=== PATIENT | male | born 1940 | race Two or more races ===

== ENCOUNTER 2022-01-10 14:30 | Inpatient (IN) | payer MEDICARE, OTHER ==
[~2022-01-10] VITALS: Ht 182.9 cm; Wt 68.9 kg
--- NOTE | 2022-01-10 14:34 | NUR ---
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 TO ER BED 6, HOOKED TO MONITOR, CHANGED TO HOSP GOWN,W ARM BLANKET PROVIDED. PATIENT AAOx1. BREATHING EVEN AND UNLABORED. AWAITING MD TERRY
--- NOTE | 2022-01-10 15:00 | NUR ---
DR RUFFIN AT BEDSIDE
--- NOTE | 2022-01-10 15:14 | NUR ---
PATIENT TAKEN TO CT VIA CARL[facility] ENRIQUE
[2022-01-10] MEDS ORDERED: CYAN1TAB17 PO (16:09)
[2022-01-10] MEDS ORDERED: FINA5TAB11 PO (16:09)
[2022-01-10] MEDS ORDERED: TRAZ-182 PO (16:09)
[2022-01-10] MEDS ORDERED: TRAM50TA2 PO (16:09)
[2022-01-10] MEDS ORDERED: PROB500T9 PO (16:09)
[2022-01-10] MEDS ORDERED: PANT40TA49 PO (16:09)
[2022-01-10] MEDS ORDERED: MAGN400T52 PO (16:09)
[2022-01-10] MEDS ORDERED: CYAN-51 PO (16:09)
[2022-01-10] MEDS ORDERED: MELA3TAB41 PO (16:09)
[2022-01-10] MEDS ORDERED: TERA5CAP4 PO (16:09)
[2022-01-10] MEDS ORDERED: LEVO-104 PO (16:09)
[2022-01-10] MEDS ORDERED: BUPR100T13 PO (16:09)
[2022-01-10] MEDS ORDERED: LEVE500T20 PO (16:09)
[2022-01-10] MEDS ORDERED: TURM500C9 PO (16:09)
[2022-01-10] MEDS ORDERED: FOLI0.4T6 PO (16:09)
--- NOTE | 2022-01-10 16:20 | NUR ---
COVID SWAB DONE AND SENT TO LAB
[2022-01-10 16:53] LABS: BASOPHILS % (AUTO) 0.1 % (0.0-2.0); EOSINOPHILS % (AUTO) 0.2 % (0.0-6.0); HEMATOCRIT 36 % (39-51); LYMPHOCYTES # (AUTO) 0.7 K/uL (0.8-4.8); LYMPHOCYTES % (AUTO) 7.1 % (20.0-44.0); MEAN CORPUSCULAR HGB CONC 34 g/dl (31.0-36.0); MEAN CORPUSCULAR VOLUME 98 fL (80-96); MONOCYTES # (AUTO) 1.2 K/uL (0.1-1.30); NEUTROPHILS # (AUTO) 7.4 K/uL (1.8-8.9); NEUTROPHILS % (AUTO) 79.6 % (43.0-81.0); PLATELET COUNT (AUTO) 133 K/uL (150-450); RED BLOOD CELL COUNT(AUTO) 3.61 MIL/uL (4.5-6.0); WHITE BLOOD COUNT (AUTO) 9.3 K/uL (4.3-11.0)
[2022-01-10 17:06] LABS: CALCIUM, SERUM 9.1 mg/dL (8.5-10.1); CREATININE 1.2 mg/dL (0.6-1.3)
--- NOTE | 2022-01-10 18:05 | NUR ---
room assigned 327.1
--- NOTE | 2022-01-10 18:23 | NUR ---
REPORT GIVEN TO SAMUEL MORRIS OF MS UNIT
[2022-01-10] MEDS ORDERED: ACETAMINOPHEN 325 MG TABLET PO PRN (18:30)
[2022-01-10] MEDS ORDERED: ONDANSETRON HCL/PF 4 MG/2 ML VIAL IVP PRN (18:30)
[2022-01-10] MEDS ORDERED: Z GUARD REMEDY 4 OZ OINT TP PRN (18:30)
[2022-01-10] MEDS ORDERED: MAG HYDROX/AL HYDROX/SIMETH 30 ML UDC PO PRN (18:30)
[2022-01-10] MEDS ORDERED: TRAMADOL HCL 50 MG TABLET PO PRN (18:30)
[2022-01-10] MEDS ORDERED: HYDROMORPHONE 1 MG/1 ML DISP.SYRIN IV PRN (19:00)
--- NOTE | 2022-01-10 19:30 | NUR ---
MS STORAGE SPECIALIST NOTES RECEIVED REPORT FROM SAMUEL RN,PER REPORT,PATIENT JUST TRANSPORTED TO THE UNIT VIA GURNEY FROM ER,ALERT,ORIENTED X1-2,WITH PERIODS OF CONFUSION,S/P FROM WHEELCHAIR AT THE FACILITY, FALL YESTERDAY WHILE WALKING WELL..ON HIP X-RAY AND PELVIC CT SHOWED COMMINUTED,DISPLACED INTER THROCHANTERIC FRACTURE LEFT HIP.NO SKIN ISSUES,SALINE LOCK LEFT AC INTACT AND PATENT,SITTER AT BEDSIDE FOR SAFETY,WILL CONTINUE TO MONITOR STATUS.
[2022-01-10] MEDS: IV NS 0.9% 1,000 ML IV PRN (19:58)
--- NOTE | 2022-01-10 19:58 | NUR ---
MS RN NOTES STARTED ON IVF NS AT 90ML/HR RATE. ORDERED.
[2022-01-10 20:00] VITALS: BP 154/94
[2022-01-10] MEDS: TRAZODONE 50 MG TABLET PO SCH (21:20)
[2022-01-10] MEDS ORDERED: ZOLPIDEM TARTRATE 5 MG TABLET PO PRN (22:00)
[2022-01-10] MEDS ORDERED: Medication Not On Formulary EA (Melatonin 3 MG) PO SCH (22:00)
[2022-01-10] MEDS ORDERED: MAGNESIUM HYDROXIDE 30 ML UDC PO PRN (22:00)
--- NOTE | 2022-01-11 04:00 | NUR ---
MS RN NOTES GAY CATHETER LAO 16 INSERTED ASEPTICALLY,WITH CONCENTRATED URINE OUTPUT.SPECIMEN OBTAINED FOR U/A AND CULTURE,SENT TO LAB
--- NOTE | 2022-01-11 06:29 | NUR ---
MS RN NOTES FAIRLY RESTED AT NIGHT,PAIN TOLERABLE THRU OUT SHIFT,NPO POST MIDNIGHT,GOING FOR LEFT HIP ORIF BY DR GILMAN.SURGICAL POCKET ON CHART.GAY CATH IN PLACE DRAINS TEA COLORED URINE.IN NO ACUTE DISTRESS.SITTER AT BEDSIDE..
[2022-01-11 06:50] LABS: BASOPHILS % (AUTO) 0.1 % (0.0-2.0); EOSINOPHILS % (AUTO) 0.3 % (0.0-6.0); HEMATOCRIT 33 % (39-51); HEMOGLOBIN 11.2 g/dL (13.5-17.5); LYMPHOCYTES # (AUTO) 0.9 K/uL (0.8-4.8); LYMPHOCYTES % (AUTO) 9.8 % (20.0-44.0); MEAN CORPUSCULAR HGB CONC 34 g/dl (31.0-36.0); MEAN CORPUSCULAR VOLUME 98 fL (80-96); MONOCYTES # (AUTO) 1.1 K/uL (0.1-1.30); MONOCYTES % (AUTO) 12.2 % (2.0-12.0); NEUTROPHILS % (AUTO) 77.6 % (43.0-81.0); PLATELET COUNT (AUTO) 141 K/uL (150-450); RED BLOOD CELL COUNT(AUTO) 3.34 MIL/uL (4.5-6.0); WHITE BLOOD COUNT (AUTO) 9.1 K/uL (4.3-11.0)
--- NOTE | 2022-01-11 07:06 | NUR ---
MS RN OPENING NOTES RECEIVED PATIENT SLEEPING IN BED, ON ROOM AIR, NO S/S OF RESPIRATORY DISTRESS. RESPONSIVE TO VERBAL AND TACTILE STIMULI. A/Ox1-2, EPISODES OF CONFUSION. HAS FC, DRAINING WELL, YELLOW URINE PRESENT. IV ACCESS L AC RUNNING NS @90 ML/HR. INTACT AND PATENT. SKIN INTACT. SITTER AT BEDSIDE. SAFETY MEASURES IN PLACE: BED LOCKED AND IN LOWEST POSITION, SIDE RAILS UPx3, HOB ELEVATED, CALL LIGHT WITHIN REACH. WILL CONTINUE TO MONITOR.
[2022-01-11 07:24] LABS: CALCIUM, SERUM 8.7 mg/dL (8.5-10.1); CREATININE 0.9 mg/dL (0.6-1.3); MAGNESIUM 1.9 mg/dL (1.8-2.4); PHOSPHORUS 3.3 mg/dL (2.5-4.9); POTASSIUM 3.8 mmol/L (3.5-5.1)
[2022-01-11 07:54] LABS: BILIRUBIN,URINE SMALL (NEGATIVE); COLOR,URINE YELLOW (YELLOW); LEUKOCYTE ESTERASE ,URINE NEGATIVE (NEGATIVE); NITRITE, URINE NEGATIVE (NEGATIVE); PROTEIN,URINE 30 mg/dl (NEGATIVE); UGLUCOSE NEGATIVE (NEGATIVE)
[2022-01-11] MEDS: LEVOTHYROXINE SODIUM 100 MCG TABLET PO SCH (08:03)
[2022-01-11] MEDS: PANTOPRAZOLE 40 MG TABLET.DR PO SCH (08:03)
[2022-01-11 08:04] VITALS: BP 145/70
[2022-01-11 08:32] LABS: BACTERIA,URINE Few /HPF (None Seen); RBC,URINE 0-2 /HPF (0-2)
[2022-01-11] MEDS: MAGNESIUM OXIDE 400 MG TABLET PO SCH (08:59)
[2022-01-11] MEDS: FOLIC ACID 1 MG TABLET PO SCH (08:59)
[2022-01-11] MEDS ORDERED: Medication Not On Formulary EA (Turmeric Root Extract (Turmeric) 500 MG) PO SCH (09:00)
[2022-01-11] MEDS ORDERED: Medication Not On Formulary EA (Levetiracetam 1 TAB) PO SCH (09:00)
[2022-01-11] MEDS ORDERED: [UNRECOGNIZED DRUG - OTHER] PO SCH (09:00)
[2022-01-11] MEDS: TERAZOSIN HCL 5 MG CAPSULE PO SCH (09:00)
[2022-01-11] MEDS: CYANOCOBALAMIN 500 MCG TABLET PO SCH (09:00)
[2022-01-11] MEDS ORDERED: PYRIDOXINE PO SCH (09:00)
[2022-01-11] MEDS ORDERED: CYANOCOBALAMIN 2500 MCG PO SCH (09:00)
[2022-01-11] MEDS: buPROPion 100 MG TABLET PO SCH ×2 (09:00→16:42)
[2022-01-11] MEDS: FINASTERIDE (5 MG) 5 MG TABLET PO SCH (09:00)
[2022-01-11] MEDS ORDERED: Medication Not On Formulary EA (Magnesium Oxide 400 MG) PO SCH (09:00)
[2022-01-11] MEDS ORDERED: CYANOCOBALAMIN PO SCH (09:00)
[2022-01-11] MEDS: LEVETIRACETAM (250 MG) 250 MG TABLET PO SCH ×3 (09:01→16:42)
[2022-01-11] MEDS: HYDROCODONE/APAP 10/325MG TABLET PO PRN (14:45)
--- NOTE | 2022-01-11 15:17 | NUR ---
RN NOTES PATIENT COMPLAINED OF PAIN, FACIAL GRIMACING AND MOANING NOTED WHEN REPOSITIONING. PRN NARCO ADMINISTERED. WILL CONTINUE TO MONITOR.
[2022-01-11 16:00] VITALS: BP 111/62
[2022-01-11] MEDS: IV NS 0.9% 1,000 ML IV PRN (17:16)
--- NOTE | 2022-01-11 18:43 | NUR ---
RN NOTES CONTINUING CARE OF PATIENT FOR BRAZER FURNACE.
[2022-01-11 20:08] VITALS: BP 121/67
[2022-01-11] MEDS: TRAZODONE 50 MG TABLET PO SCH (21:28)
[2022-01-12] MEDS: HYDROCODONE/APAP 10/325MG TABLET PO PRN ×2 (02:28→09:49)
--- NOTE | 2022-01-12 02:35 | NUR ---
RN NOTES PATIENT EXPRESSED PAIN WHEN ADJUSTING IN BED, PRN NARCO GIVEN WITH A LITTLE BIT OF WATER PATIENT IS NOW NPO FOR SURGERY @1100 TODAY. WILL CONTINUE TO MONITOR.
[2022-01-12 04:03] VITALS: BP 122/65
[2022-01-12] MEDS: IV NS 0.9% 1,000 ML IV PRN ×2 (04:16→16:38)
[2022-01-12 06:24] LABS: BASOPHILS % (AUTO) 0.2 % (0.0-2.0); EOSINOPHILS % (AUTO) 1.2 % (0.0-6.0); HEMATOCRIT 28 % (39-51); HEMOGLOBIN 9.6 g/dL (13.5-17.5); LYMPHOCYTES # (AUTO) 1.1 K/uL (0.8-4.8); LYMPHOCYTES % (AUTO) 16.6 % (20.0-44.0); MEAN CORPUSCULAR HGB CONC 34 g/dl (31.0-36.0); MEAN CORPUSCULAR VOLUME 99 fL (80-96); MONOCYTES # (AUTO) 0.7 K/uL (0.1-1.30); MONOCYTES % (AUTO) 10.8 % (2.0-12.0); NEUTROPHILS # (AUTO) 4.6 K/uL (1.8-8.9); NEUTROPHILS % (AUTO) 71.2 % (43.0-81.0); PLATELET COUNT (AUTO) 128 K/uL (150-450); RED BLOOD CELL COUNT(AUTO) 2.85 MIL/uL (4.5-6.0); WHITE BLOOD COUNT (AUTO) 6.5 K/uL (4.3-11.0)
--- NOTE | 2022-01-12 06:33 | NUR ---
MS RN CLOSING NOTES PATIENT SLEEPING IN BED, ON ROOM AIR, NO S/S OF RESPIRATORY DISTRESS. RESPONSIVE TO VERBAL AND TACTILE STIMULI. A/Ox1-2, EPISODES OF CONFUSION. HAS FC, DRAINING WELL, YELLOW URINE PRESENT DRAINED A TOTAL OF 650 ML. IV ACCESS L AC RUNNING NS @90 ML/HR. INTACT AND PATENT. SKIN INTACT. SITTER AT BEDSIDE. ALL PRESCRIBED MEDICATION ADMINISTERED. SAFETY MEASURES MAINTAINED: BED LOCKED AND IN LOWEST POSITION, SIDE RAILS UPx3, HOB ELEVATED, CALL LIGHT WITHIN REACH. WILL ENDORSE TO NEXT SHIFT ANY DONTAE.
[2022-01-12 06:53] LABS: CALCIUM, SERUM 8.3 mg/dL (8.5-10.1); CREATININE 0.9 mg/dL (0.6-1.3); POTASSIUM 4.2 mmol/L (3.5-5.1)
--- NOTE | 2022-01-12 07:30 | NUR ---
MS RN OPENING NOTES RECEIVED PATIENT SLEEPING IN BED, ON ROOM AIR, NO S/S OF RESPIRATORY DISTRESS. RESPONSIVE TO VERBAL AND TACTILE STIMULI. A/Ox1-2, EPISODES OF CONFUSION. STAFF SITTER AT BEDSIDE. HAS FC, DRAINING WELL, YELLOW URINE PRESENT. IV ACCESS L AC RUNNING NS @90 ML/HR. INTACT AND PATENT. SKIN INTACT. SITTER AT BEDSIDE. SAFETY MEASURES IN PLACE: BED LOCKED AND IN LOWEST POSITION, SIDE RAILS UPx3, HOB ELEVATED, CALL LIGHT WITHIN REACH, WILL CARRY OUT PLAN OF CARE THROUGHOUT SHIFT.
[2022-01-12 08:00] VITALS: BP 144/79
[2022-01-12] MEDS: LEVOTHYROXINE SODIUM 100 MCG TABLET PO SCH (08:24)
[2022-01-12] MEDS: CYANOCOBALAMIN 500 MCG TABLET PO SCH (08:26)
[2022-01-12] MEDS: FINASTERIDE (5 MG) 5 MG TABLET PO SCH (08:27)
[2022-01-12] MEDS: LEVETIRACETAM (250 MG) 250 MG TABLET PO SCH ×3 (08:27→16:22)
[2022-01-12] MEDS: PANTOPRAZOLE 40 MG TABLET.DR PO SCH (08:27)
[2022-01-12] MEDS: MAGNESIUM OXIDE 400 MG TABLET PO SCH (08:28)
[2022-01-12] MEDS: FOLIC ACID 1 MG TABLET PO SCH (08:28)
[2022-01-12] MEDS: buPROPion 100 MG TABLET PO SCH ×2 (08:28→16:22)
[2022-01-12] MEDS: TERAZOSIN HCL 5 MG CAPSULE PO SCH (08:36)
[2022-01-12 10:51] VITALS: BP 111/57
--- NOTE | 2022-01-12 10:51 | NUR ---
MS RN NOTES: OR STAFF TRANSPORTED PT TO OR VIA GURNEY. PT VS WNL, WITH NO SIGNS OF ACUTE DISTRESS AND SOB NOTED ON RA.
[2022-01-12] MEDS ORDERED: HYDROMORPHONE INJ 2 MG/ML DISP.SYRIN ONE (11:36)
[2022-01-12] MEDS ORDERED: BUPIVACAINE 0.25% 75 MG/30 ML VIAL ONE (12:15)
[2022-01-12 13:27] LABS: HEMOGLOBIN 10.4 g/dL (13.5-17.5)
[2022-01-12 13:41] VITALS: BP 135/72
--- NOTE | 2022-01-12 13:45 | NUR ---
MS RN POST OP NOTES: PT CAME BACK TO UNIT FROM OR @ 1341, TRANSPORTED VIA GURNEY BY ARTURO SEVILLA. PT VITALS: BP- 135/72; HR- 80, O2 SAT- 96%, TEMP- 97.9; RR- 18. PT HAS NO S/S OF SOB OR ACUTE DISTRESS, ON 2 L OF O2 FOR COMFORT. PT REORIENTED TO STAFF AND UNIT. PT DENIES ANY PAIN AT THE MOMENT. THREE DRESSINGS NOTED ON L HIP, DRY, CLEAN AND INTACT. RESUMED IVF. SITTER IS AT BEDSIDE. NPO STATUS COMPLETED, RESUMED FULL LIQUID THEN ADVANCE TO SOFT DIET 01/13/2022 PER MD. SAFETY MEASURES IN PLACE, CALL LIGHT WITHIN REACH, WILL CONT WITH PLAN OF CARE THROUGHOUT SHIFT.
[2022-01-12 16:00] VITALS: BP 122/74
--- NOTE | 2022-01-12 18:38 | NUR ---
MS RN CLOSING NOTES: PATIENT SLEEPING IN BED BUT EASILY ROUSED. NO S/S OF SOB AND ACUTE DISTRESS ON 2 L OF O2 FOR COMFORT. NO S/S OF RESPIRATORY DISTRESS. RESPONSIVE TO VERBAL AND TACTILE STIMULI. A/OX 1-2, EPISODES OF CONFUSION. HAS FC, DRAINING WELL, YELLOW URINE PRESENT. IV ACCESS L AC RUNNING NS @90 ML/HR. INTACT AND PATENT. SKIN INTACT. SITTER AT BEDSIDE. SAFETY MEASURES IN PLACE: BED LOCKED AND IN LOWEST POSITION, SIDE RAILS UPx3, HOB ELEVATED, CALL LIGHT WITHIN REACH, WILL ENDORSE TO PM SHIFT.
[2022-01-12] MEDS: ANCEF 1 GM/50 ML D5W IV SCH ×2 (20:08)
--- NOTE | 2022-01-12 20:12 | NUR ---
noc rn opening received patient in bed with eyes closed easy to arouse. no s/s of apparent distress on 2lpm of o2 via nc, s/p ORIF. no c/o pain at this time. L. ac running ns @90mls/hr at this time, nichols cath draining cloudy dark yellow urine. re-oriented and encouraged with the use of call light. safety in place. will continue with patient's plan of care.
[2022-01-12 21:00] VITALS: BP 118/62
[2022-01-12] MEDS: TRAZODONE 50 MG TABLET PO SCH (22:17)
[2022-01-13] MEDS: ANCEF 1 GM/50 ML D5W IV SCH ×4 (04:01→11:29)
--- NOTE | 2022-01-13 07:30 | NUR ---
RN MS NOTES PT IN BED, AWAKE, NO SIGN OF PAIN OR DISTRESS, CALL LIGHT WITHIN REACH, BREATHING PATTERN NORMAL, CALL LIGHT WITHIN REACH, NEEDS ATTENDED, KEPT COMFORTABLE.
[2022-01-13 08:00] VITALS: BP 130/67
[2022-01-13] MEDS: LEVETIRACETAM (250 MG) 250 MG TABLET PO SCH ×3 (08:39→17:17)
[2022-01-13] MEDS: MAGNESIUM OXIDE 400 MG TABLET PO SCH (08:40)
[2022-01-13] MEDS: PANTOPRAZOLE 40 MG TABLET.DR PO SCH (08:40)
[2022-01-13] MEDS: FINASTERIDE (5 MG) 5 MG TABLET PO SCH (08:40)
[2022-01-13] MEDS: LEVOTHYROXINE SODIUM 100 MCG TABLET PO SCH (08:40)
[2022-01-13] MEDS: CYANOCOBALAMIN 500 MCG TABLET PO SCH (08:41)
[2022-01-13] MEDS: FOLIC ACID 1 MG TABLET PO SCH (08:41)
[2022-01-13] MEDS: TERAZOSIN HCL 5 MG CAPSULE PO SCH (08:42)
[2022-01-13] MEDS: ENOXAPARIN SODIUM 40 MG/0.4 ML DISP.SYRIN SQ SCH (08:43)
[2022-01-13] MEDS: buPROPion 100 MG TABLET PO SCH ×2 (08:45→17:17)
[2022-01-13 08:47] LABS: BASOPHILS % (AUTO) 0.1 % (0.0-2.0); EOSINOPHILS % (AUTO) 0.4 % (0.0-6.0); HEMATOCRIT 28 % (39-51); HEMOGLOBIN 9.5 g/dL (13.5-17.5); LYMPHOCYTES % (AUTO) 13.1 % (20.0-44.0); MEAN CORPUSCULAR HGB CONC 34 g/dl (31.0-36.0); MEAN CORPUSCULAR VOLUME 99 fL (80-96); MONOCYTES # (AUTO) 0.5 K/uL (0.1-1.30); MONOCYTES % (AUTO) 6.8 % (2.0-12.0); NEUTROPHILS # (AUTO) 5.8 K/uL (1.8-8.9); NEUTROPHILS % (AUTO) 79.6 % (43.0-81.0); PLATELET COUNT (AUTO) 138 K/uL (150-450); WHITE BLOOD COUNT (AUTO) 7.3 K/uL (4.3-11.0)
[2022-01-13 08:53] LABS: CALCIUM, SERUM 8.4 mg/dL (8.5-10.1); CREATININE 0.8 mg/dL (0.6-1.3); POTASSIUM 3.8 mmol/L (3.5-5.1)
[2022-01-13] MEDS: IV NS 0.9% 1,000 ML IV PRN (11:26)
[2022-01-13] MEDS: HYDROCODONE/APAP 10/325MG TABLET PO PRN (15:20)
[2022-01-13 16:00] VITALS: BP 146/68
--- NOTE | 2022-01-13 18:14 | NUR ---
RN MS NOTES: Patient is in stable condition. Vital signs are WNL. No signs and symptoms of distress. Patient's dressings are patent and intact. Patient Comply with his medication arrangement.Sometimes, patient was trying to get out of bed, did not know his limitations. Sitter is in his room to keep him safe.
--- NOTE | 2022-01-13 19:15 | NUR ---
MS RN OPENING NOTES: PATIENT SLEEPING IN BED BUT EASILY AROUSED. NO S/S OF SOB AND ACUTE DISTRESS. RESPONSIVE TO VERBAL AND TACTILE STIMULI. A/OX1, PATIENT IS DISORGANIZED AND CONFUSED. PATIENT HAS GAY CATHETER, DRAINING WELL, YELLOW URINE PRESENT. IV ACCESS RFA RUNNING NS @90 ML/HR. INTACT AND PATENT. SKIN INTACT. SAFETY MEASURES IN PLACE: BED LOCKED AND IN LOWEST POSITION, SIDE RAILS UPx3, HOB ELEVATED, CALL LIGHT WITHIN REACH, WILL CONTINUE TO MONITOR PT THROUGHOUT THE SHIFT.
[2022-01-13 20:00] VITALS: BP 118/67
[2022-01-13] MEDS: TRAZODONE 50 MG TABLET PO SCH (21:50)
[2022-01-14] MEDS: IV NS 0.9% 1,000 ML IV PRN ×2 (03:18→16:28)
--- NOTE | 2022-01-14 06:18 | NUR ---
MS RN CLOSING NOTES: PATIENT SLEEPING IN BED BUT EASILY AROUSED. NO S/S OF SOB AND ACUTE DISTRESS. RESPONSIVE TO VERBAL AND TACTILE STIMULI. A/OX1, PATIENT IS DISORGANIZED AND CONFUSED. PATIENT HAS GAY CATHETER, DRAINING WELL, YELLOW URINE PRESENT. IV ACCESS RFA RUNNING NS @90 ML/HR. INTACT AND PATENT. SKIN INTACT. SAFETY MEASURES IN PLACE: BED LOCKED AND IN LOWEST POSITION, SIDE RAILS UPx3, HOB ELEVATED, CALL LIGHT WITHIN REACH, WILL ENDORSE TO DAY SHIFT NURSE FOR CONTINUITY OF CARE.
--- NOTE | 2022-01-14 07:08 | NUR ---
MS RN OPENING NOTES RECEIVED PATIENT SLEEPING IN BED, ON ROOM AIR, NO S/S OF RESPIRATORY DISTRESS. RESPONSIVE TO VERBAL AND TACTILE STIMULI. A/Ox1-2, EPISODES OF CONFUSION. HAS FC, DRAINING WELL, YELLOW URINE PRESENT. IV ACCESS L AC RUNNING NS @90 ML/HR. INTACT AND PATENT. SKIN INTACT. SITTER AT BEDSIDE. SAFETY MEASURES IN PLACE: BED LOCKED AND IN LOWEST POSITION, SIDE RAILS UPx3, HOB ELEVATED, CALL LIGHT WITHIN REACH. WILL CONTINUE TO MONITOR. Addendum: 01/14/22 at 1655 by WENDY DUNLAP RN ADDENDUM: IV ACCESS RFA #20G NOT L AC
[2022-01-14 08:00] VITALS: BP 160/72
[2022-01-14] MEDS: LEVOTHYROXINE SODIUM 100 MCG TABLET PO SCH (08:28)
[2022-01-14] MEDS: PANTOPRAZOLE 40 MG TABLET.DR PO SCH (08:29)
[2022-01-14] MEDS: LEVETIRACETAM (250 MG) 250 MG TABLET PO SCH ×3 (08:30→16:28)
[2022-01-14] MEDS: FOLIC ACID 1 MG TABLET PO SCH (08:30)
[2022-01-14] MEDS: CYANOCOBALAMIN 500 MCG TABLET PO SCH (08:30)
[2022-01-14] MEDS: FINASTERIDE (5 MG) 5 MG TABLET PO SCH (08:30)
[2022-01-14] MEDS: MAGNESIUM OXIDE 400 MG TABLET PO SCH (08:30)
[2022-01-14] MEDS: CALCIUM CARB 600MG /VIT D 1 EACH TABLET PO SCH (08:30)
[2022-01-14] MEDS: TERAZOSIN HCL 5 MG CAPSULE PO SCH (08:31)
[2022-01-14] MEDS: ENOXAPARIN SODIUM 40 MG/0.4 ML DISP.SYRIN SQ SCH (08:47)
[2022-01-14] MEDS: buPROPion 100 MG TABLET PO SCH ×2 (09:38→16:28)
[2022-01-14 10:01] LABS: BASOPHILS % (AUTO) 0.2 % (0.0-2.0); EOSINOPHILS % (AUTO) 0.8 % (0.0-6.0); HEMATOCRIT 28 % (39-51); HEMOGLOBIN 9.3 g/dL (13.5-17.5); LYMPHOCYTES # (AUTO) 0.7 K/uL (0.8-4.8); LYMPHOCYTES % (AUTO) 9.8 % (20.0-44.0); MEAN CORPUSCULAR HGB CONC 34 g/dl (31.0-36.0); MEAN CORPUSCULAR VOLUME 99 fL (80-96); MONOCYTES # (AUTO) 0.4 K/uL (0.1-1.30); MONOCYTES % (AUTO) 6.2 % (2.0-12.0); NEUTROPHILS # (AUTO) 5.7 K/uL (1.8-8.9); PLATELET COUNT (AUTO) 158 K/uL (150-450); RED BLOOD CELL COUNT(AUTO) 2.79 MIL/uL (4.5-6.0); WHITE BLOOD COUNT (AUTO) 6.8 K/uL (4.3-11.0)
[2022-01-14] MEDS ORDERED: ENOX40DI SQ (15:34)
[2022-01-14] MEDS ORDERED: CYAN500T64 PO (15:34)
[2022-01-14] MEDS ORDERED: Folic Acid PO (15:34)
[2022-01-14] MEDS ORDERED: Calcium Carb 600MG /Vit D PO (15:34)
[2022-01-14 16:00] VITALS: BP 128/68
--- NOTE | 2022-01-14 19:11 | NUR ---
MS RN CLOSING NOTES PATIENT SLEEPING IN BED, ON ROOM AIR, NO S/S OF RESPIRATORY DISTRESS. RESPONSIVE TO VERBAL AND TACTILE STIMULI. A/Ox1-2, EPISODES OF CONFUSION. HAS FC, DRAINING WELL, YELLOW URINE PRESENT 900 OUTPUT. IV ACCESS R FA RUNNING NS @90 ML/HR. INTACT AND PATENT. SKIN INTACT. SITTER AT BEDSIDE. ALL PRESCRIBED MEDICATION ADMINISTERED. SAFETY MEASURES MAINTAINED: BED LOCKED AND IN LOWEST POSITION, SIDE RAILS UPx3, HOB ELEVATED, CALL LIGHT WITHIN REACH. WILL ENDORSE TO NEXT SHIFT ANY DONTAE.
--- NOTE | 2022-01-14 19:30 | NUR ---
RECEIVED PATIENT IN BED AWAKE. A/Ox2. ON ROOM AIR NO S/S OF RESPIRATORY DISTRESS. ON BEDREST, AMBULATORY WITH ASSIST. IV ACCES ON RT FOREARM G#20 INFUSING NS @ 90 ML/HR, INTACT AND PATENT. NOT IN DISTRESS. SKIN INTACT, SX SITE ON ON LT HIP. SAFETY MEASURES IN PLACE: BED LOCKED AND IN LOWEST POSITION, SIDE RAILS UPx3, HOB SLIGHTLY ELEVATED, CALL LIGHT WITHIN REACH. WILL CONTINUE PLAN OF CARE.
[2022-01-14 20:00] VITALS: BP 139/67
[2022-01-14] MEDS: HYDROCODONE/APAP 10/325MG TABLET PO PRN (21:25)
[2022-01-14] MEDS: TRAZODONE 50 MG TABLET PO SCH (21:25)
[2022-01-15] MEDS: IV NS 0.9% 1,000 ML IV PRN (03:38)
--- NOTE | 2022-01-15 06:32 | NUR ---
PATIENT IN BED ASLEEP. A/Ox2. ON ROOM AIR NO S/S OF RESPIRATORY DISTRESS. ON BEDREST, AMBULATORY WITH ASSIST. IV ACCES ON RT FOREARM G#20 INFUSING NS @ 90 ML/HR, INTACT AND PATENT. NOT IN DISTRESS. SKIN INTACT, SX SITE ON ON LT HIP. DUE MEDS AND PRN MEDS GIVEN NEEDED AND ORDERED. NEEDS ATTENDED. SAFETY MEASURES MAINTAINED. BED LOCKED AND IN LOWEST POSITION, SIDE RAILS UPx3, HOB SLIGHTLY ELEVATED, CALL LIGHT WITHIN REACH. WILL ENDORSE TO NEXT NURSE ON DUTY FOR CONTINUITY OF CARE.
--- NOTE | 2022-01-15 07:25 | NUR ---
RN OPENING NOTES RECEIVED PATIENT ASLEEP IN BED, EASILY AROUSED. A/O X2, VERBALLY RESPONSIVE. NO SIGNS OF ACUTE DISTRESS NOTED. DENIES ANY PAIN AT THIS TIME. ON ROOM AIR, TOLERATING WELL. NO SOB NOTED, BREATHING EVEN AND UNLABORED. NOTED WITH IV ACCESS ON RIGHT FOREARM #20G, INTACT AND PATENT WITH NS @ 90 ML/HR RUNNING. SAFETY MEASURE IN PLACE. BED IN LOWEST AND LOCKED POSITION. SIDE RAILS UP X2, CALL LIGHT PLACED WITHIN EASY REACH. WILL CONTINUE TO MONITOR PATIENT.
[2022-01-15 08:00] VITALS: BP 146/72
[2022-01-15] MEDS: FINASTERIDE (5 MG) 5 MG TABLET PO SCH (08:56)
[2022-01-15] MEDS: FOLIC ACID 1 MG TABLET PO SCH (08:56)
[2022-01-15] MEDS: CALCIUM CARB 600MG /VIT D 1 EACH TABLET PO SCH (08:56)
[2022-01-15] MEDS: PANTOPRAZOLE 40 MG TABLET.DR PO SCH (08:56)
[2022-01-15] MEDS: MAGNESIUM OXIDE 400 MG TABLET PO SCH (08:57)
[2022-01-15] MEDS: LEVETIRACETAM (250 MG) 250 MG TABLET PO SCH ×3 (08:57→16:10)
[2022-01-15] MEDS: CYANOCOBALAMIN 500 MCG TABLET PO SCH (08:57)
[2022-01-15] MEDS: TERAZOSIN HCL 5 MG CAPSULE PO SCH (08:58)
[2022-01-15] MEDS ORDERED: ENSURE ENLIVE 237 ML LIQUID (VANILLA) PO SCH (09:00)
[2022-01-15] MEDS: ENOXAPARIN SODIUM 40 MG/0.4 ML DISP.SYRIN SQ SCH (09:00)
[2022-01-15] MEDS: buPROPion 100 MG TABLET PO SCH ×2 (09:05→16:10)
[2022-01-15] MEDS: LEVOTHYROXINE SODIUM 100 MCG TABLET PO SCH (09:05)
[2022-01-15 16:00] VITALS: BP 156/76
--- NOTE | 2022-01-15 18:50 | NUR ---
RN CLOSING NOTES PATIENT AWAKE IN BED, A/O X2, VERBALLY RESPONSIVE. NO SIGNS OF ACUTE DISTRESS NOTED. DENIES ANY PAIN AT THIS TIME. REMAINS STABLE ON ROOM AIR, TOLERATING WELL. NO SOB NOTED, BREATHING EVEN AND UNLABORED. IV ACCESS ON RIGHT FOREARM #20G, INTACT AND PATENT WITH NS @ 90 ML/HR RUNNING. SAFETY MEASURE IN PLACE. BED IN LOWEST AND LOCKED POSITION. SIDE RAILS UP X2, CALL LIGHT PLACED WITHIN EASY REACH. WILL ENDORSE TO NEXT SHIFT FOR CONTINUITY OF CARE.
--- NOTE | 2022-01-15 19:30 | NUR ---
MS RN NOTES RECEIVED PATIENT LYING IN BED AWAKE, HOB ELEVATED. A/O X2. BREATHING EVEN AND NON-LABORED ON ROOM AIR. NOT IN APPARENT DISTRESS. DENIES PAIN AT THIS TIME. HAS RIGHT FOREARM IV ACCESS #20G WITH NS RUNNING AT 90 ML/HR. NO S/S OF INFILTRATION NOTED. HAS INDWELLING GAY CATHETER DRAINING CLEAR YELLOW URINE TO BAG BY GRAVITY. SAFETY PRECAUTIONS IN PLACE: BED LOCKED AND IN LOWEST POSITION, SIDE RAILS UP X2, CALL LIGHT WITHIN REACH. WILL CONTINUE POC.
--- NOTE | 2022-01-15 19:39 | NUR ---
RN NOTE PATIENT FOR TRANSFER TO [facility]. REPORT CALLED TO ARTURO HERNANDEZ.
--- NOTE | 2022-01-15 20:28 | NUR ---
MS CONTROLLED AREA CHECKER NOTES PATIENT IN BED AWAKE. A/O X2, ABLE TO VERBALIZE NEEDS. NO SOB OR NOTED, TOLERATING ROOM AIR WELL. NO PAIN OR DISCOMFORT NOTED. WEIGHT-BEARING TOLERATED ON LEFT LOWER EXTREMITY. DISCHARGE ORDER GIVEN. DISCHARGE AND MEDICATION INSTRUCTIONS PROVIDED TO PATIENT. MAINTAINED RIGHT FOREARM IV ACCESS #20G AND INDWELLING GAY CATHETER PER ARTURO HERNANDEZ. ALL BELONGINGS ACCOUNTED FOR. PICKED UP BY 2 MALE EMT AND LEFT VIA AMBULANCE IN STABLE CONDITION.
== END 2022-01-15 21:00 | DRG 480 ==
LOC: ER 14:38 → MED 18:44
PROVIDERS: ADMIT Nurse Practitioner Acute Care; ATTEND Student in an Organized Health Care Education/Training Program
PROC: 0QS706Z Reposition Left Upper Femur with Intramedullary Internal Fixation Device, Open Approach (ICD-10-PCS; principal; 2022-01-12)
DX: S72.142A Displaced intertrochanteric fracture of left femur, initial encounter for closed fracture (principal); G93.41 Metabolic encephalopathy; F03.90 Unspecified dementia, unspecified severity, without behavioral disturbance, psychotic disturbance, mood disturbance, and anxiety; G40.909 Epilepsy, unspecified, not intractable, without status epilepticus; I10 Essential (primary) hypertension; Z20.822 Contact with and (suspected) exposure to COVID-19; N40.0 Benign prostatic hyperplasia without lower urinary tract symptoms; Z79.899 Other long term (current) drug therapy; Z86.73 Personal history of transient ischemic attack (TIA), and cerebral infarction without residual deficits; F32.A Depression, unspecified; W05.0XXA Fall from non-moving wheelchair, initial encounter; Y92.049 Unspecified place in boarding-house as the place of occurrence of the external cause; G93.89 Other specified disorders of brain; E03.9 Hypothyroidism, unspecified; H26.9 Unspecified cataract
CPT/HCPCS: 36415; 70450-TC; 71045-TC; 72125-TC; 72192-TC; 73502; 73552; 80048-TC; 81001; 83735-TC; 84100-TC; 85025-TC; 85027-TC; 85730-TC; 86850-TC; 87081-TC; 87086-TC; 93307-TC; 94799-TC; 97110-TC; 97112-TC; 97530-TC; A4217; A6209; A6253; C1713; C9803; G0378; J0690; J1100; J1170; J1650; J1885; J2405; J2704; J3490; J7030; J7060; L0172

== ENCOUNTER 2023-06-04 18:06 | Emergency (ER) | payer OTHER, MEDICAID ==
[~2023-06-04] VITALS: Ht 154.9 cm; Wt 46.7 kg
[~2023-06-04 18:06] MED LIST: BUPR100T13 PO; CYAN-51 PO; CYAN1TAB17 PO; CYAN500T64 PO; Calcium Carb 600MG /Vit D PO; ENOX40DI SQ; FINA5TAB11 PO; FOLI0.4T6 PO; Folic Acid PO; LEVE500T20 PO; LEVO-104 PO; MAGN400T52 PO; MELA3TAB41 PO; PANT40TA49 PO; PROB500T9 PO; TERA5CAP4 PO; TRAM50TA2 PO; TRAZ-182 PO; TURM500C9 PO
[2023-06-04 18:57] LABS: BASOPHILS # (AUTO) 0.1 K/uL (0.0-0.2); EOSINOPHILS % (AUTO) 0.3 % (0.0-6.0); HEMATOCRIT 36 % (39-51); HEMOGLOBIN 12.3 g/dL (13.5-17.5); LYMPHOCYTES # (AUTO) 0.6 K/uL (0.8-4.8); LYMPHOCYTES % (AUTO) 8.9 % (20.0-44.0); MEAN CORPUSCULAR HEMOGLOBIN 34 PG (26.0-33.0); MEAN CORPUSCULAR HGB CONC 34 g/dl (31.0-36.0); MEAN CORPUSCULAR VOLUME 99 fL (80-96); MONOCYTES # (AUTO) 0.6 K/uL (0.1-1.30); MONOCYTES % (AUTO) 8.4 % (2.0-12.0); NEUTROPHILS # (AUTO) 5.4 K/uL (1.8-8.9); NEUTROPHILS % (AUTO) 81.4 % (43.0-81.0); PLATELET COUNT (AUTO) 162 K/uL (150-450); RED BLOOD CELL COUNT(AUTO) 3.65 MIL/uL (4.5-6.0); RED CELL DISTRIBUTION WIDTH 13.6 % (11.5-15.0); WHITE BLOOD COUNT (AUTO) 6.6 K/uL (4.3-11.0)
[2023-06-04 19:12] LABS: CALCIUM, SERUM 9.3 mg/dL (8.5-10.1); CARBON DIOXIDE 26 mmol/L (21-32); CHLORIDE 99 mmol/L (98-107); CREATININE 0.5 mg/dL (0.6-1.3); GLUCOSE 80 mg/dL (74-106); POTASSIUM 4.5 mmol/L (3.5-5.1); SODIUM SERUM 134 mmol/L (136-145); UREA NITROGEN, BLOOD 14 mg/dL (7-18)
[2023-06-04 19:16] LABS: LACTIC ACID 0.8 mmol/L (0.4-2.0)
[2023-06-04 19:18] LABS: ALANINE AMINOTRANSFERASE 16 U/L (12-78); ALBUMIN 3.1 g/dL (3.4-5.0); ALKALINE PHOSPHATASE 79 U/L (46-116); ASPARTATE AMINOTRANSFERASE 48 U/L (15-37); BILIRUBIN,DIRECT 0.1 mg/dL (0.0-0.2); BILIRUBIN,TOTAL 0.5 mg/dL (0.2-1.0); TOTAL PROTEIN, SERUM 6.7 g/dL (6.4-8.2)
[2023-06-04 20:34] VITALS: BP 112/79; O2SAT 99
[2023-06-04 20:58] LABS: APPEARANCE,URINE SLIGHTLY CLOUDY (CLEAR); BILIRUBIN,URINE 1+ (NEGATIVE); BLOOD, URINE 3+ Ery/uL (NEGATIVE); COLOR,URINE YELLOW (YELLOW); KETONES,URINE TRACE mg/dL (NEGATIVE); LEUKOCYTE ESTERASE ,URINE 1+ (NEGATIVE); NITRITE, URINE NEGATIVE (NEGATIVE); PROTEIN,URINE TRACE mg/dl (NEGATIVE); UGLUCOSE NEGATIVE (NEGATIVE)
[2023-06-04 21:13] LABS: ADD URINE CULTURE YES; BACTERIA,URINE 4+ /HPF (None Seen); SQUAMOUS EPITHELIAL CELL,UR Few /HPF (None Seen)
[2023-06-04] MEDS: CEFTRIAXONE 1 G in IV D5W 50 ML IV ONE (22:00)
[2023-06-04] MEDS: IV NS 0.9% 1,000 ML BAG IV ONE (22:00)
[2023-06-04] MEDS ORDERED: CEFTRIAXONE 1GM BAG (ER ONLY) 50 ML IV ONE (22:03)
== END 2023-06-04 23:34 | disposition short-term general hospital (02) ==
LOC: ER 18:06
DX: N39.0 Urinary tract infection, site not specified (principal); D64.9 Anemia, unspecified; R62.7 Adult failure to thrive; E86.0 Dehydration; E88.09 Other disorders of plasma-protein metabolism, not elsewhere classified; R79.89 Other specified abnormal findings of blood chemistry; F03.90 Unspecified dementia, unspecified severity, without behavioral disturbance, psychotic disturbance, mood disturbance, and anxiety; I10 Essential (primary) hypertension; K21.9 Gastro-esophageal reflux disease without esophagitis; E03.9 Hypothyroidism, unspecified; Z79.899 Other long term (current) drug therapy; Z68.1 Body mass index [BMI] 19.9 or less, adult; Z20.822 Contact with and (suspected) exposure to COVID-19
CPT/HCPCS: 99285; 96365; 71045; 87426; 93005; 85025; 80048; 87040 ×2; 87086; 83605; 80076; 81001; 36415; 84484; 83880; 82962; J7030; J0696

== ENCOUNTER 2023-06-24 10:25 | Inpatient (IN) | payer OTHER ==
[~2023-06-24] VITALS: Ht 170.2 cm; Wt 55.3 kg
[2023-06-24] MEDS ORDERED: DOCU250C14 PO (11:12)
[2023-06-24] MEDS ORDERED: ALEN70TA80 PO (11:12)
[2023-06-24 11:46] LABS: BASOPHILS % (AUTO) 0.1 % (0.0-2.0); EOSINOPHILS % (AUTO) 0.2 % (0.0-6.0); HEMATOCRIT 34 % (39-51); HEMOGLOBIN 11.1 g/dL (13.5-17.5); LYMPHOCYTES # (AUTO) 0.5 K/uL (0.8-4.8); LYMPHOCYTES % (AUTO) 10.6 % (20.0-44.0); MEAN CORPUSCULAR HEMOGLOBIN 33 PG (26.0-33.0); MEAN CORPUSCULAR HGB CONC 33 g/dl (31.0-36.0); MEAN CORPUSCULAR VOLUME 101 fL (80-96); MONOCYTES # (AUTO) 0.4 K/uL (0.1-1.30); MONOCYTES % (AUTO) 8.3 % (2.0-12.0); NEUTROPHILS # (AUTO) 3.8 K/uL (1.8-8.9); NEUTROPHILS % (AUTO) 80.8 % (43.0-81.0); PLATELET COUNT (AUTO) 192 K/uL (150-450); RED BLOOD CELL COUNT(AUTO) 3.33 MIL/uL (4.5-6.0); RED CELL DISTRIBUTION WIDTH 14.2 % (11.5-15.0); WHITE BLOOD COUNT (AUTO) 4.7 K/uL (4.3-11.0)
[2023-06-24 12:09] LABS: APPEARANCE,URINE TURBID (CLEAR); BILIRUBIN,URINE NEGATIVE (NEGATIVE); BLOOD, URINE NEGATIVE Ery/uL (NEGATIVE); COLOR,URINE DARK YELLOW (YELLOW); KETONES,URINE TRACE mg/dL (NEGATIVE); LEUKOCYTE ESTERASE ,URINE TRACE (NEGATIVE); NITRITE, URINE NEGATIVE (NEGATIVE); PH,URINE 6.5 (5.0-8.0); PROTEIN,URINE NEGATIVE (NEGATIVE); UGLUCOSE NEGATIVE (NEGATIVE)
[2023-06-24 12:11] LABS: ADD URINE CULTURE YES; BACTERIA,URINE Few /HPF (None Seen); RBC,URINE 0-2 /HPF (0-2); SQUAMOUS EPITHELIAL CELL,UR Rare /HPF (None Seen)
[2023-06-24 12:15] LABS: CALCIUM, SERUM 8.8 mg/dL (8.5-10.1); CARBON DIOXIDE 22 mmol/L (21-32); CHLORIDE 106 mmol/L (98-107); CREATININE 0.5 mg/dL (0.6-1.3); GLUCOSE 137 mg/dL (74-106); POTASSIUM 4.2 mmol/L (3.5-5.1); SODIUM SERUM 138 mmol/L (136-145); UREA NITROGEN, BLOOD 19 mg/dL (7-18)
[2023-06-24] MEDS ORDERED: FUROSEMIDE 20 MG/2 ML VIAL ONE (12:19)
[2023-06-24] MEDS ORDERED: methylPREDNISolone SOD SUCC 125 MG/2ML VIAL ONE (12:19)
[2023-06-24] MEDS ORDERED: PIPERACI/TAZO 3.375GM/D5W 50ML PB IV ONE (12:20)
[2023-06-24 12:23] LABS: ALANINE AMINOTRANSFERASE 64 U/L (12-78); ALBUMIN 2.2 g/dL (3.4-5.0); ALKALINE PHOSPHATASE 82 U/L (46-116); ASPARTATE AMINOTRANSFERASE 76 U/L (15-37); BILIRUBIN,DIRECT 0.1 mg/dL (0.0-0.2); BILIRUBIN,TOTAL 0.3 mg/dL (0.2-1.0); TOTAL PROTEIN, SERUM 5.9 g/dL (6.4-8.2)
[2023-06-24] MEDS ORDERED: ALBUTEROL FS 2.5 MG/3 ML VIAL.NEB CONTNEB ONE (12:30)
[2023-06-24] MEDS ORDERED: IPRATROPIUM NEB FS 0.5 MG/2.5 ML AMPUL.NEB NEB ONE (12:30)
[2023-06-24] MEDS: methylPREDNISolone SOD SUCC 125 MG/2ML VIAL IV ONE (12:41)
[2023-06-24] MEDS: FUROSEMIDE 20 MG/2 ML VIAL IV ONE (12:41)
[2023-06-24] MEDS: PIPERACILLIN /TAZOBACTAM 3.375 G in IV D5W 50 ML IV ONE (12:41)
[2023-06-24] MEDS ORDERED: ALBUTEROL FS 2.5 MG/0.5 ML VIAL.NEB NEB PRN (13:00)
[2023-06-24] MEDS ORDERED: MORPHINE SULFATE INJ 2 MG/ML DISP.SYRIN IV PRN (13:00)
[2023-06-24] MEDS ORDERED: ONDANSETRON HCL/PF 4 MG/2 ML VIAL IVP PRN (13:00)
[2023-06-24] MEDS ORDERED: ACETAMINOPHEN 325 MG TABLET PO PRN (13:00)
[2023-06-24 13:22] LABS: LACTIC ACID 2.5 mmol/L (0.4-2.0)
[2023-06-24 13:23] LABS: INR 1.09 (0.91-1.10); PARTIAL THROMBOPLASTIN TIME 31.9 SEC (24.3-34.3); PROTHROMBIN TIME 11.2 SECS (9.2-11.1)
[2023-06-24 13:32] LABS: ABG BASE EXCESS 0.8 mmol/L; ABG OXYGEN SATURATION 98.6 % (92.0-98.5); ABG PCO2 34.2 mmHg (35.0-45.0); ABG PH 7.465 (7.350-7.450); ABG PO2 126.4 mmHg (75.0-100.0); ABG TOTAL HEMOGLOBIN 12.9 G/dL (13.5-18.0); COHb 0.4 % (0.5-1.5); MetHb 0.3 % (0.0-1.5); O2Hb 97.9 % (94.0-97.0); SITE, ABG Right Radial; VENT MODE, BG Nasal Cannula
[2023-06-24] MEDS ORDERED: CEFEPIME HCL 2 GM in IV D5W 100 ML IV SCH (15:00)
[2023-06-24 15:17] VITALS: BP 92/27; TEMP 98.4; O2SAT 97
[2023-06-24] MEDS: CEFEPIME HCL 2 GM in IV D5W 100 ML IV SCH (16:31)
[2023-06-24] MEDS: VANCOMYCIN HCL 1.25 GM in IV D5W 250 ML IV ONE (16:50)
[2023-06-24] MEDS: LEVETIRACETAM (250 MG) 250 MG TABLET PO SCH (17:00)
[2023-06-24] MEDS: DOCUSATE SODIUM LIQ 100 MG/10 ML UDC PO SCH (17:00)
[2023-06-24] MEDS: buPROPion 100 MG TABLET PO SCH (17:00)
[2023-06-24] MEDS ORDERED: IPRATROPIUM/ALBUTEROL INHALER IH SCH (18:00)
[2023-06-24] MEDS: IPRATROPIUM NEB FS 0.5 MG/2.5 ML AMPUL.NEB NEB SCH (19:36)
[2023-06-24] MEDS: ALBUTEROL FS 2.5 MG/3 ML VIAL.NEB NEB SCH (19:37)
[2023-06-24 19:47] VITALS: O2SAT 95
[2023-06-24 20:00] VITALS: BP 102/64; TEMP 97.1; O2SAT 97
[2023-06-24 20:02] VITALS: O2SAT 97; O2SAT 99
[2023-06-24] MEDS: HEPARIN SODIUM, PORCINE 5000 UNITS/1 ML VIAL SQ SCH (21:08)
[2023-06-24] MEDS: TRAZODONE 50 MG TABLET PO SCH (22:00)
[2023-06-24] MEDS: TERAZOSIN HCL 5 MG CAPSULE PO SCH (22:00)
[2023-06-24] MEDS: DOCUSATE SODIUM 250 MG CAPSULE PO SCH (22:00)
[2023-06-24] MEDS ORDERED: Medication Not On Formulary EA (Melatonin 3 MG) PO SCH (22:00)
[2023-06-25] VITALS (9 sets, daily range): BP systolic 119–125; BP diastolic 64–76; TEMP 97; O2SAT 97–100
[2023-06-25] MEDS: VANCOMYCIN 750 MG in IV D5W 250 ML IV SCH (02:36)
[2023-06-25 06:58] LABS: HEMATOCRIT 36 % (39-51); HEMOGLOBIN 12.1 g/dL (13.5-17.5); LYMPHOCYTES # (AUTO) 0.6 K/uL (0.8-4.8); LYMPHOCYTES % (AUTO) 7.2 % (20.0-44.0); MEAN CORPUSCULAR HEMOGLOBIN 34 PG (26.0-33.0); MEAN CORPUSCULAR HGB CONC 34 g/dl (31.0-36.0); MEAN CORPUSCULAR VOLUME 99 fL (80-96); MONOCYTES # (AUTO) 0.7 K/uL (0.1-1.30); MONOCYTES % (AUTO) 7.8 % (2.0-12.0); NEUTROPHILS # (AUTO) 7.6 K/uL (1.8-8.9); PLATELET COUNT (AUTO) 211 K/uL (150-450); RED BLOOD CELL COUNT(AUTO) 3.61 MIL/uL (4.5-6.0); RED CELL DISTRIBUTION WIDTH 13.5 % (11.5-15.0)
[2023-06-25] MEDS: LEVOTHYROXINE SODIUM 100 MCG TABLET PO SCH (07:30)
[2023-06-25 07:43] LABS: ALANINE AMINOTRANSFERASE 59 U/L (12-78); ALBUMIN 2.3 g/dL (3.4-5.0); ALKALINE PHOSPHATASE 87 U/L (46-116); ASPARTATE AMINOTRANSFERASE 52 U/L (15-37); BILIRUBIN,TOTAL 0.5 mg/dL (0.2-1.0); CALCIUM, SERUM 9.3 mg/dL (8.5-10.1); CARBON DIOXIDE 27 mmol/L (21-32); CHLORIDE 103 mmol/L (98-107); CREATININE 0.7 mg/dL (0.6-1.3); GLUCOSE 109 mg/dL (74-106); MAGNESIUM 2.2 mg/dL (1.8-2.4); PHOSPHORUS 3.8 mg/dL (2.5-4.9); POTASSIUM 4.2 mmol/L (3.5-5.1); SODIUM SERUM 139 mmol/L (136-145); TOTAL PROTEIN, SERUM 6.5 g/dL (6.4-8.2); UREA NITROGEN, BLOOD 22 mg/dL (7-18)
[2023-06-25] MEDS: POLYETHYLENE GLYCOL 3350 17 GM POWD.PACK PO SCH (09:00)
[2023-06-25] MEDS: FINASTERIDE (5 MG) 5 MG TABLET PO SCH (09:00)
[2023-06-25] MEDS: PANTOPRAZOLE 40 MG TABLET.DR PO SCH (09:00)
[2023-06-25] MEDS ORDERED: CEFE2FRO IV (11:53)
== END 2023-06-25 16:10 | disposition short-term general hospital (02) | DRG 189 ==
LOC: ER 10:30 → TELE1 13:29
PROVIDERS: ADMIT Internal Medicine; ATTEND Internal Medicine
DX: J96.01 Acute respiratory failure with hypoxia (principal); N39.0 Urinary tract infection, site not specified; D53.9 Nutritional anemia, unspecified; G40.909 Epilepsy, unspecified, not intractable, without status epilepticus; E03.9 Hypothyroidism, unspecified; I10 Essential (primary) hypertension; J44.9 Chronic obstructive pulmonary disease, unspecified; N40.0 Benign prostatic hyperplasia without lower urinary tract symptoms; Z86.73 Personal history of transient ischemic attack (TIA), and cerebral infarction without residual deficits; F03.90 Unspecified dementia, unspecified severity, without behavioral disturbance, psychotic disturbance, mood disturbance, and anxiety; Z20.822 Contact with and (suspected) exposure to COVID-19; Z88.0 Allergy status to penicillin; Z88.2 Allergy status to sulfonamides
CPT/HCPCS: 36415; 36600; 71045-TC; 80048-TC; 80053-TC; 80076-TC; 81001; 82803-TC; 83605-TC; 83735-TC; 83880; 84100-TC; 84484-TC; 85025-TC; 85730-TC; 87040-TC; 87086-TC; 92526; 92611-TC; 94799-TC; A4223; A4624; G0378; J0692; J1644; J1940; J2543; J2930; J3371; J7050; J7060